=== PATIENT | male | born 1985 | race Caucasian/White ===

== ENCOUNTER → 2018-08-22 | Outpatient (REF) | payer BC | LOC: M LAB REF 11:17 | PROVIDERS: ATTEND Internal Medicine Gastroenterology | DX: K58.2 Mixed irritable bowel syndrome (principal) ==

== ENCOUNTER 2018-09-21 06:36 | Day surgery (SDC) | payer BC ==
[~2018-09-21] VITALS: Ht 170.2 cm; Wt 55.3 kg
[~2018-09-21 06:36] MED LIST: BUPR150T3 PO; DICY20TA11 PO; FAMO20TA PO
[2018-09-21] MEDS ORDERED: NS 1,000 ML IV ONE (07:00)
[2018-09-21] MEDS ORDERED: PROPOFOL 500 MG/50 ML VIAL As Ordered ONE (07:33)
[2018-09-21] MEDS ORDERED: LIDOCAINE 2% INJ 100 MG/5 ML SDV (FOR ANES.) As Ordered ONE (07:33)
--- NOTE | 2018-09-21 07:54 | ROOR ---
Patient Name: Bishop Banks Procedure Date: 09/21/2018 7:33 AM Date of : 1985 Age: 33 Room: OP02 Gender: Male Note Status: Finalized Procedure: Colonoscopy Indications: Hematochezia, Mixed irritable bowel syndrome Providers: Jared LIANG MD Referring MD: Marisa Lawson ([place]), FITNESS ASSISTANT Requesting Provider: Medicines: Monitored Anesthesia Care Complications: No immediate complications. Procedure: Pre-Anesthesia Assessment: - The heart rate, respiratory rate, oxygen saturations, blood pressure, adequacy of pulmonary ventilation, and response to care were monitored throughout the procedure. The Colonoscope was introduced through the anus and advanced to 15 cm into the ileum. The colonoscopy was performed without difficulty. The patient tolerated the procedure well. The quality of the bowel preparation was good. Findings: The perianal and digital rectal examinations were normal. (Exam: Complete, Prep: Good or Excellent.) Internal hemorrhoids were found during retroflexion. The hemorrhoids were moderate. Retroflexion in the right colon was performed. The colon (entire examined portion) appeared normal. The terminal ileum appeared normal. Impression: - (Exam: Complete, Prep: Good or Excellent.) - Moderate to large irritated Internal hemorrhoids. - The entire colon is normal. - The terminal ileum is normal. - No specimens collected. - (Irritable bowel syndrome suspected) Recommendation: - Continue present medications. - Use fiber, for example Citrucel, Fibercon, Konsyl or Metamucil. - Return to referring physician as previously scheduled. Jared Liang MD Jared LIANG MD 09/21/2018 7:54:00 AM Electronically signed by Jared LIANG MD Number of Addenda: 0 Note Initiated On: 09/21/2018 7:33 AM Estimated Blood Loss: Estimated blood loss: none.
[2018-09-21 08:23] VITALS: BP 131/90
== END 2018-09-21 08:22 | disposition home or self-care (01) ==
LOC: M OPP 06:36
PROVIDERS: ATTEND Internal Medicine Gastroenterology
DX: K92.1 Melena (principal); K58.2 Mixed irritable bowel syndrome; K64.8 Other hemorrhoids; Z79.899 Other long term (current) drug therapy; F17.210 Nicotine dependence, cigarettes, uncomplicated; K21.9 Gastro-esophageal reflux disease without esophagitis

== ENCOUNTER 2022-08-31 10:23 | Day surgery (SDC) | payer BC ==
[~2022-08-31] VITALS: Ht 172.7 cm; Wt 56.2 kg
[~2022-08-31 10:23] MED LIST changes: +BUPR150T12 PO; -BUPR150T3 PO; -DICY20TA11 PO; +DICY20TA20 PO; +NS 1,000 ML IV ONE; +OMEP-173 PO
[2022-08-31] MEDS ORDERED: propofoL 200 MG/20 ML VIAL As Ordered ONE (11:45)
[2022-08-31] MEDS ORDERED: LIDOCAINE 2% 100MG/5ML SDV (FOR ANES.) As Ordered ONE (11:45)
[2022-08-31 12:45] VITALS: BP 123/78
== END 2022-08-31 12:58 | disposition home or self-care (01) ==
LOC: M OPP 10:23
PROVIDERS: ATTEND Internal Medicine Gastroenterology
DX: K64.0 First degree hemorrhoids (principal); K22.89 Other specified disease of esophagus; K31.89 Other diseases of stomach and duodenum; F17.200 Nicotine dependence, unspecified, uncomplicated; Z88.0 Allergy status to penicillin